=== PATIENT | male | born 1980 | race Caucasian/White ===

== ENCOUNTER 2019-02-09 16:38 | Outpatient (REF) | payer BC, SELFPAY ==
[2019-02-09 19:00] LABS: Calculated LDL 123 mg/dL; Cholesterol 197 mg/dL (50-200); Glucose 91 mg/dL (70-100); HDL Cholesterol 48 mg/dL (40-60); Triglyceride 131 mg/dL (30-150)
[2019-02-09 19:09] LABS: Hemoglobin A1C 5.4 % (4.5-6.2)
[2019-02-09 19:50] LABS: Bacteria Rare HPF (Negative); C & S Indicated? No; Casts Negative LPF (Negative); Crystals Negative HPF (Negative); Epithelial Cells Rare HPF (Negative); Mucus Negative (Negative); Other Cells Negative (Negative); RBC Negative (0-2); WBC Negative HPF (0-5)
== END 2019-02-09 16:58 ==
LOC: NCHCN 16:38
PROVIDERS: PCP Physician Assistant Medical; Visit Provider Internal Medicine
DX: G56.00 Carpal tunnel syndrome, unspecified upper limb (principal); R35.0 Frequency of micturition; M54.5 Low back pain; Z83.3 Family history of diabetes mellitus; Z13.220 Encounter for screening for lipoid disorders
CPT/HCPCS: 80061; 82947; 81015; 83036; 84443

== ENCOUNTER 2023-10-07 16:07 | Outpatient (REF) | payer BC, SELFPAY ==
[2023-10-07 19:23] LABS: Hemoglobin A1C 5.7 % (<5.7)
[2023-10-07 19:54] LABS: Vitamin B12 559 pg/mL (193-986)
[2023-10-10 11:08] LABS: Hepatitis C Ab w Rflx HCV PCR Negative (Negative)
[2023-10-10 11:22] LABS: HIV-1/2 Ag & Ab Screen Negative (Negative)
[2023-10-10 13:30] LABS: Syphilis Serology (RPR) Negative (Negative)
== END 2023-10-07 16:08 | disposition home or self-care (01) ==
LOC: NCHCN 16:07
PROVIDERS: PCP Physician Assistant Medical; Visit Provider Internal Medicine
DX: R42 Dizziness and giddiness (principal)
CPT/HCPCS: 86803; 87389; 82607; 83036; 83655; 86592

== ENCOUNTER 2024-07-08 14:58 | Emergency (ER) | payer OTHER, SELFPAY ==
[2024-07-08 15:01] VITALS: BP 154/90; PULSE 98; RESP 18; TEMP 37.2; O2SAT 98
[2024-07-08 15:31] LABS: Bilirubin Negative (Negative); Blood Negative (Negative); Clarity Clear (Clear); Glucose Negative (Negative); Ketones Negative (Negative); Leukocyte Esterase Negative (Negative); Nitrite Negative (Negative); Specific Gravity >= 1.030 (1.005-1.025); Urobilinogen 0.2 mg/dL (Up to 0.2); pH 5.5 (5-8)
--- NOTE | 2024-07-08 15:57 | ED.GENADUL_ITS ---
Discharge Plan Disposition Patient Disposition: Home Discharge Details Clinical Impression: Urinary frequency, Dysuria Primary Care Provider: Laurent Garcia V ED Provider: Jonathan Nuno Home Meds and New Rx's Prescriptions: No Action buprenorphine-naloxone 8-2 mg tablet, sublingual 1 tab sublingual DAILY Discharge Instructions Instructions: Dysuria (ED) Additional Instructions: At this time your emergency workup and exam was negative with no abnormal findings noted. If you have any new or significant worsening of symptoms feel free to return the emergency department for reassessment otherwise follow-up with your primary care provider There are a few additional tests that we are waiting for results and we will contact you with any positive results that need treatment Referrals: Laurent Garcia V [Primary Care Provider] - 3 days (If not improving) Discharge Data Discharge Date/Time-TO BE ENTERED AT DEPARTURE: 07/08/24 16:10 HPI General Mode of arrival: ambulatory . Date/Time Provider Initiated Documentation: 07/08/24 14:59 . Limitations to Documentation: no limitations . Information obtained by: patient and RN notes reviewed . History of Present Illness 43 year old M presents to the emergency department with the chief complaint of Urinary frequency, Patient started experiencing this day(s) (3) and it has been intermittent. No relieving factors improve symptom(s), No exacerbating factors reported . Patient notes no other symptoms.. Patient did receive the following treatments prior to arrival, none Related Data Home Medications ?Medication ?Instructions ?Recorded ?Confirmed buprenorphine 8 mg-naloxone 2 mg 1 tab sublingual DAILY 07/08/24 07/08/24 sublingual tablet Allergies Allergy/AdvReac Type Severity Reaction Status Date / Time salicylic acid Allergy Severe Hives Verified 07/08/24 15:09 General Stated Complaint: Urinary KAMRAN: 3 Review of Systems Constitutional Constitutional: Denies chills and Denies fever(s) Gastrointestinal Gastrointestinal: Denies abdominal pain, Denies nausea and Denies vomiting Genitourinary Genitourinary: Reports as per HPI, Denies genital pain, Denies dysuria, Reports flank pain and Reports urinary frequency Integumentary/Breasts Skin/Breast: Denies erythema and Denies rash Exam Const General: cooperative and no acute distress Orientation: alert, awake and oriented x3 Resp Effort & Inspection: normal respiratory effort and able to speak in complete sentences Auscultation: clear to auscultation bilaterally Cardio Rate: regular rate Rhythm: regular rhythm Heart Sounds: S1 normal and S2 normal GI Palpation: nontender Male General Exam: Yes normal external exam Penis: normal penis Meatus: meatus normal Scrotum: scrotum normal Testes: normal Back/Spine/Pelvis Back: no CVA tenderness Neuro General: patient alert, patient awake and patient oriented x3 Extrem General: capillary refill normal Course Vital Signs Vital signs: Vital Signs Temperature 37.2 C 07/08/24 15:01 Pulse 98 H 07/08/24 15:01 Respiratory Rate 18 07/08/24 15:01 Blood Pressure 154/90 H 07/08/24 15:01 Pulse Oximetry 98 07/08/24 15:01 Temperature 37.2 C 07/08/24 15:01 Pulse 98 H 07/08/24 15:01 Respiratory Rate 18 07/08/24 15:01 Blood Pressure 154/90 H 07/08/24 15:01 Pulse Oximetry 98 07/08/24 15:01 Oxygen Delivery Method Room Air 07/08/24 15:01 Oxygen Flow Rate 0 07/08/24 15:01 Pain Level 8 07/08/24 15:01 Lab/Test Results Lab/Test Results: Laboratory Tests Range/Units 07/08/24 15:00 Urine Color (Yellow) Yellow Urine Clarity (Clear) Clear Urine pH (5-8) 5.5 Ur Specific [place] (1.005-1.025) >= 1.030 H Urine Protein (Neg-Trace) mg/dL Negative Urine Ketones (Negative) mg/dL Negative Urine Blood (Negative) Negative Urine Nitrite (Negative) Negative Urine Bilirubin (Negative) Negative Urine Urobilinogen (Up to 0.2) mg/dL 0.2 Ur Leukocyte Esterase (Negative) Negative Urine Glucose (Negative) mg/dL Negative Medical Decision Making Pt here for urinary frequency. Symptoms for 3 days. denies fever, nausea, diarrhea, does state initially some flank pain and tingling which has mostly resolved. Exam shows no CVA tenderness, no supra-pubic tenderness, otherwise neg exam and pt is non toxic in apperance. ddx to include acute cyctitis/UTI, urethritis, kidney stone that is more likely resolved given improving symptoms . Consider STI but doubt it given that patient states that symptoms started before sexual encounter and is in a monogamous relationship for more than 20 years. doubt Pyelonephritis or Infected kidney stone. Will plan on checking urinalysis, gonorrhea chlamydia, and blood sugar UA shows no finding to suggest UTI, no hematuria, no nitrates or leukocytes, negative for glucose and overall negative urinalysis, STI still pending and blood glucose was 98. Given negative exam and negative urinalysis and blood glucose within normal range do not feel that there are any emergent findings to exam and no need for ultrasound or further investigation. Did discuss with patient potential of sexually transmitted infection but he adamantly denies new partners so we will discharge patient pending results for STI which patient stated preference for this compared to empiric treatment. Encourage patient to follow-up with primary care provider if symptoms do not improve or return for new or significant worsening of condition After discussion of diagnosis and plan of care patient has no further needs, questions, or concerns and states clear understanding to return to the emergency department for any worsening symptoms. Patient discharged pending STI results which are not available at the end of my shift. Informed patient we would contact him with positive results that need to. This documentation was generated using [employer] system, please disregard any oddities of phrase or misspellings. Lab Data Lab results reviewed: Yes I reviewed the patient's lab results. Quality:SDOH Health Related Social Needs: No Data to Display PFSH All Active Problems (Updated 07/08/24 @ 16:05 by Jonathan Nuno NP) Dysuria (Acute) Urinary frequency (Acute) Social History Smoking/Tobacco Use Status: Never Smoking risk assessment performed?: Yes Alcohol Intake: former Drug use: Current Sobriety Substance use type: marijuana
[2024-07-08 16:08] VITALS: BP 154/90; PULSE 98; RESP 18; TEMP 37.2; O2SAT 98
[2024-07-08 16:09] VITALS: BP 154/90; PULSE 98; RESP 18; TEMP 37.2; O2SAT 98
[2024-07-10 12:00] LABS: Chlamydia Result Negative (Negative); GC Result Negative (Negative)
== END 2024-07-08 16:10 | disposition home or self-care (01) ==
PROVIDERS: Nurse Practitioner Family; Emergency Provider Nurse Practitioner Family; PCP Physician Assistant Medical
DX: R30.0 Dysuria (principal); R35.0 Frequency of micturition
CPT/HCPCS: 36416; 82962; 87491; 87591; 99283; 81003